=== PATIENT | male | born 1925 | race Caucasian/White ===

== ENCOUNTER 2017-02-27 17:09 | Inpatient (IN) | payer MEDICARE, BC ==
[~2017-02-27] VITALS: Ht 167.6 cm; Wt 68.0 kg
[2017-02-27 17:49] LABS: BASOPHILS # (AUTO) 0.1 /CMM (0.0-0.2); BASOPHILS % (AUTO) 1.1 % (0.0-2.0); EOSINOPHILS # (AUTO) 0.1 /CMM (0.0-0.7); EOSINOPHILS % (AUTO) 0.7 % (0.0-6.0); HEMATOCRIT 39 % (39-51); HEMOGLOBIN 12.6 g/dL (13.5-17.5); LYMPHOCYTES # (AUTO) 1.3 /CMM (0.8-4.8); LYMPHOCYTES % (AUTO) 15.1 % (20.0-44.0); MEAN CORPUSCULAR HEMOGLOBIN 29 PG (26.0-33.0); MEAN CORPUSCULAR HGB CONC 33 g/dl (31.0-36.0); MEAN CORPUSCULAR VOLUME 88 fL (80-96); MONOCYTES % (AUTO) 11.4 % (2.0-12.0); NEUTROPHILS # (AUTO) 6.1 /CMM (1.8-8.9); NEUTROPHILS % (AUTO) 71.7 % (43.0-81.0); PLATELET COUNT (AUTO) 245 /CMM (150-450); RDW COEFFICIENT OF VARIATION 12.9 (11.5-15.0); RED BLOOD CELL COUNT(AUTO) 4.39 MIL/uL (4.5-6.0); WHITE BLOOD COUNT (AUTO) 8.6 K/uL (4.3-11.0)
[2017-02-27 17:58] LABS: CALCIUM, SERUM 9.2 mg/dL (8.5-10.1); CARBON DIOXIDE 27 mmol/L (21-32); CHLORIDE 108 mmol/L (98-107); CREATININE 1.7 mg/dL (0.6-1.3); GLUCOSE 115 mg/dL (74-106); POTASSIUM 3.7 mmol/L (3.5-5.1); SODIUM SERUM 143 mmol/L (136-145); UREA NITROGEN, BLOOD 58 mg/dL (7-18)
[2017-02-27] MEDS ORDERED: BLOOD SUGAR DIAGNOSTIC 1 EACH STRIP IN ONE (18:00)
[2017-02-27] MEDS ORDERED: IV NS 0.9% 500 ML BAG IV ONE ×3 (18:00→20:30)
[2017-02-27 18:04] LABS: ALANINE AMINOTRANSFERASE 10 U/L (12-78); ALBUMIN 2.8 g/dL (3.4-5.0); ALKALINE PHOSPHATASE 54 U/L (46-116); ASPARTATE AMINOTRANSFERASE 13 U/L (15-37); BILIRUBIN,DIRECT 0.2 mg/dL (0.0-0.2); BILIRUBIN,TOTAL 0.9 mg/dL (0.2-1.0); TOTAL PROTEIN, SERUM 5.9 g/dL (6.4-8.2)
[2017-02-27 18:08] LABS: INR 1.21 (0.87-1.13); PROTHROMBIN TIME 12.7 SECS (9.5-12.7)
[2017-02-27] MEDS ORDERED: DICL100G3 TP (20:07)
[2017-02-27] MEDS ORDERED: ATOR10TA PO (20:07)
[2017-02-27] MEDS ORDERED: DORZ10DR11 EACHEYE (20:07)
[2017-02-27] MEDS ORDERED: ISOS60TA4 PO (20:07)
[2017-02-27] MEDS ORDERED: MONT10TA22 PO (20:07)
[2017-02-27] MEDS ORDERED: APIX2.5T PO (20:07)
[2017-02-27] MEDS ORDERED: LEVO500T90 PO (20:07)
[2017-02-27] MEDS ORDERED: VALS1TAB2 PO (20:07)
[2017-02-27] MEDS ORDERED: CELE100C PO (20:07)
[2017-02-27] MEDS ORDERED: DIAZ2.5K2 PO (20:07)
[2017-02-27] MEDS ORDERED: LUBI24CA7 PO (20:07)
[2017-02-27] MEDS ORDERED: PANT40TA4 PO (20:07)
[2017-02-27] MEDS ORDERED: FESO8TAB PO (20:07)
[2017-02-27] MEDS ORDERED: LISI10TA5 PO (20:07)
[2017-02-27 21:15] VITALS: BP 91/50
[2017-02-27 22:00] VITALS: BP 91/50
[2017-02-27] MEDS ORDERED: IV NS 0.9% 1,000 ML BAG IV SCH (22:30)
[2017-02-27] MEDS ORDERED: ZOLPIDEM TARTRATE 5 MG TABLET PO PRN (22:30)
[2017-02-27] MEDS ORDERED: ACETAMINOPHEN 325 MG TABLET PO PRN (22:30)
[2017-02-27] MEDS ORDERED: ONDANSETRON HCL/PF 4 MG/2 ML VIAL IV PRN (22:30)
[2017-02-28 04:00] VITALS: BP 119/61
[2017-02-28 08:00] VITALS: BP 120/60
[2017-02-28] MEDS ORDERED: IV NS 0.9% 1,000 ML IV PRN (08:00)
[2017-02-28 08:15] LABS: BASOPHILS % (AUTO) 0.2 % (0.0-2.0); EOSINOPHILS # (AUTO) 0.3 /CMM (0.0-0.7); EOSINOPHILS % (AUTO) 4.1 % (0.0-6.0); HEMATOCRIT 36 % (39-51); HEMOGLOBIN 11.9 g/dL (13.5-17.5); LYMPHOCYTES # (AUTO) 1.3 /CMM (0.8-4.8); LYMPHOCYTES % (AUTO) 18.8 % (20.0-44.0); MEAN CORPUSCULAR HEMOGLOBIN 29 PG (26.0-33.0); MEAN CORPUSCULAR HGB CONC 33 g/dl (31.0-36.0); MEAN CORPUSCULAR VOLUME 88 fL (80-96); MONOCYTES # (AUTO) 0.9 /CMM (0.1-1.30); MONOCYTES % (AUTO) 13.5 % (2.0-12.0); NEUTROPHILS # (AUTO) 4.5 /CMM (1.8-8.9); NEUTROPHILS % (AUTO) 63.4 % (43.0-81.0); PLATELET COUNT (AUTO) 215 /CMM (150-450); RDW COEFFICIENT OF VARIATION 13.7 (11.5-15.0); RED BLOOD CELL COUNT(AUTO) 4.11 MIL/uL (4.5-6.0); WHITE BLOOD COUNT (AUTO) 7.1 K/uL (4.3-11.0)
[2017-02-28 08:36] LABS: CALCIUM, SERUM 8.4 mg/dL (8.5-10.1); CARBON DIOXIDE 28 mmol/L (21-32); CHLORIDE 110 mmol/L (98-107); CREATININE 1.4 mg/dL (0.6-1.3); GLUCOSE 107 mg/dL (74-106); MAGNESIUM 1.5 mg/dL (1.8-2.4); PHOSPHORUS 3.2 mg/dL (2.5-4.9); POTASSIUM 3.7 mmol/L (3.5-5.1); SODIUM SERUM 146 mmol/L (136-145); UREA NITROGEN, BLOOD 50 mg/dL (7-18)
[2017-02-28] MEDS ORDERED: DIAZEPAM 5 MG TABLET PO PRN (09:30)
[2017-02-28] MEDS ORDERED: TOVIAZ 8 MG PO SCH (09:30)
[2017-02-28] MEDS ORDERED: HOME MED - VOLTAREN GEL TP SCH (09:30)
[2017-02-28] MEDS ORDERED: AMITIZA PO SCH (09:30)
[2017-02-28] MEDS: Magnesium 1GM/D5W 100ML PREMIX 100 ML IV SCH ×2 (10:30→11:22)
[2017-02-28] MEDS ORDERED: Z GUARD REMEDY 4 OZ OINT TP PRN (11:00)
[2017-02-28 16:00] VITALS: BP 129/71
[2017-02-28] MEDS: APIXABAN 2.5 MG TABLET PO SCH (17:07)
[2017-02-28] MEDS: ATORVASTATIN 10 MG TABLET PO SCH (17:07)
[2017-02-28] MEDS: TIMOLOL MAL/DORZOLAM HCL OPHTH 10 ML BOTTLE EACHEYE SCH (17:07)
[2017-02-28] MEDS: MONTELUKAST SODIUM (10MG) 10 MG TABLET PO SCH (17:08)
[2017-02-28] MEDS: LEVOFLOXACIN (250MG) 250 MG TABLET PO SCH (18:33)
[2017-02-28 20:00] VITALS: BP 135/67
[2017-03-01] VITALS (8 sets, daily range): BP systolic 97–152; BP diastolic 50–71
[2017-03-01 06:26] LABS: BASOPHILS % (AUTO) 0.4 % (0.0-2.0); EOSINOPHILS # (AUTO) 0.5 /CMM (0.0-0.7); EOSINOPHILS % (AUTO) 5.8 % (0.0-6.0); HEMATOCRIT 36 % (39-51); HEMOGLOBIN 12.1 g/dL (13.5-17.5); LYMPHOCYTES # (AUTO) 1.3 /CMM (0.8-4.8); LYMPHOCYTES % (AUTO) 14.3 % (20.0-44.0); MEAN CORPUSCULAR HEMOGLOBIN 30 PG (26.0-33.0); MEAN CORPUSCULAR HGB CONC 34 g/dl (31.0-36.0); MEAN CORPUSCULAR VOLUME 88 fL (80-96); MONOCYTES % (AUTO) 11.3 % (2.0-12.0); NEUTROPHILS # (AUTO) 6.1 /CMM (1.8-8.9); NEUTROPHILS % (AUTO) 68.2 % (43.0-81.0); PLATELET COUNT (AUTO) 191 /CMM (150-450); RDW COEFFICIENT OF VARIATION 13.8 (11.5-15.0); RED BLOOD CELL COUNT(AUTO) 4.07 MIL/uL (4.5-6.0); WHITE BLOOD COUNT (AUTO) 8.9 K/uL (4.3-11.0)
[2017-03-01 06:53] LABS: CARBON DIOXIDE 25 mmol/L (21-32); CHLORIDE 109 mmol/L (98-107); CREATININE 1.1 mg/dL (0.6-1.3); GLUCOSE 115 mg/dL (74-106); MAGNESIUM 1.8 mg/dL (1.8-2.4); PHOSPHORUS 2.9 mg/dL (2.5-4.9); POTASSIUM 3.3 mmol/L (3.5-5.1); SODIUM SERUM 143 mmol/L (136-145); UREA NITROGEN, BLOOD 39 mg/dL (7-18)
[2017-03-01] MEDS: PANTOPRAZOLE 40 MG TABLET.DR PO SCH (08:32)
[2017-03-01] MEDS: TIMOLOL MAL/DORZOLAM HCL OPHTH 10 ML BOTTLE EACHEYE SCH ×2 (08:32→17:11)
[2017-03-01] MEDS: APIXABAN 2.5 MG TABLET PO SCH ×2 (08:40→17:10)
[2017-03-01] MEDS ORDERED: LEVOFLOXACIN (500MG) 500 MG TABLET PO SCH (09:00)
[2017-03-01] MEDS ORDERED: CELECOXIB 100 MG CAPSULE PO SCH (09:00)
[2017-03-01] MEDS ORDERED: POTASSIUM CHLORIDE 20 MEQ TAB.PRT.SR PO SCH (10:30)
[2017-03-01] MEDS: ATORVASTATIN 10 MG TABLET PO SCH (17:10)
[2017-03-01] MEDS: LEVOFLOXACIN (250MG) 250 MG TABLET PO SCH (17:10)
[2017-03-01] MEDS: MONTELUKAST SODIUM (10MG) 10 MG TABLET PO SCH (17:13)
[2017-03-02 00:34] VITALS: BP 110/61
[2017-03-02 04:03] VITALS: BP_SYST 152
[2017-03-02 08:00] VITALS: BP 148/71
[2017-03-02] MEDS: TIMOLOL MAL/DORZOLAM HCL OPHTH 10 ML BOTTLE EACHEYE SCH (08:31)
[2017-03-02] MEDS: PANTOPRAZOLE 40 MG TABLET.DR PO SCH (08:31)
[2017-03-02] MEDS: APIXABAN 2.5 MG TABLET PO SCH (08:31)
== END 2017-03-02 11:42 | disposition home health service (06) | DRG 312 ==
LOC: ER 17:12 → TELE 20:56
PROVIDERS: ADMIT Internal Medicine; ATTEND Internal Medicine
DX: I95.2 Hypotension due to drugs (principal); N17.1 Acute kidney failure with acute cortical necrosis; E86.9 Volume depletion, unspecified; E86.0 Dehydration; I48.91 Unspecified atrial fibrillation; Z88.8 Allergy status to other drugs, medicaments and biological substances; Z86.73 Personal history of transient ischemic attack (TIA), and cerebral infarction without residual deficits; R53.81 Other malaise; E78.00 Pure hypercholesterolemia, unspecified; Z79.01 Long term (current) use of anticoagulants; Z79.899 Other long term (current) drug therapy
CPT/HCPCS: 36415; 71010-TC; 80048-TC; 80076-TC; 83605-TC; 83735-TC; 84100-TC; 85025-TC; 85730-TC; 87040-TC; 87081-TC; 87086-TC; 97001-TC; A4606; A6402; A6403; J3475; J7030; J7040; Z7610